=== PATIENT | female | born 1950 | race Caucasian/White ===

== ENCOUNTER → 2019-11-04 | Outpatient (CLI) | payer MEDICARE | LOC: MC.RAD 13:34 | DX: Z12.31 Encounter for screening mammogram for malignant neoplasm of breast (principal) ==

== ENCOUNTER → 2020-11-20 | Outpatient (CLI) | payer MEDICARE | LOC: MC.RAD 13:30 | DX: Z12.31 Encounter for screening mammogram for malignant neoplasm of breast (principal) ==

== ENCOUNTER 2021-09-21 14:50 | Outpatient (CLI) | payer MEDICARE ==
[~2021-09-21] VITALS: Ht 177.8 cm; Wt 60.8 kg
[2021-09-21 15:07] VITALS: BP 163/79; PULSE 49; TEMP 98.6
[2021-09-21] MEDS ORDERED: MASON NATURAL2000 IU PO (15:09)
[2021-09-21] MEDS ORDERED: MULTI VITAMINS1 TAB PO (15:09)
--- NOTE | 2021-09-21 16:15 | NUR ---
INT DC'd, pt assisted out to elevator. She tolerated infusion without issue.
== END 2021-09-21 16:31 | disposition home or self-care (01) ==
LOC: EUO 14:50
DX: M81.0 Age-related osteoporosis without current pathological fracture (principal)
CPT/HCPCS: J3489

== ENCOUNTER 2021-11-18 13:57 | Emergency (ER) | payer MEDICARE ==
[~2021-11-18] VITALS: Ht 177.8 cm; Wt 60.9 kg
[~2021-11-18 13:57] MED LIST: MASON NATURAL2000 IU PO; MULTI VITAMINS1 TAB PO
[2021-11-18 13:59] VITALS: TEMP 98.3
[2021-11-18] MEDS ORDERED: WALKER MC (15:18)
[2021-11-18] MEDS ORDERED: NORCO 325 MG-51 TAB PO (15:22)
[2021-11-18 15:24] VITALS: BP 130/76; PULSE 71
== END 2021-11-18 15:56 | disposition home or self-care (01) ==
LOC: COL.ER 13:57
DX: S82.032A Displaced transverse fracture of left patella, initial encounter for closed fracture (principal); W01.198A Fall on same level from slipping, tripping and stumbling with subsequent striking against other object, initial encounter; Y93.21 Activity, ice skating
CPT/HCPCS: 31289; L1830; L1846

== ENCOUNTER → 2022-07-21 | Outpatient (CLI) | payer MEDICARE ==
[~2022-07-21] MED LIST changes: +NORCO 325 MG-51 TAB PO; +WALKER MC
== END ==
LOC: MC.RAD 11:22
DX: Z12.31 Encounter for screening mammogram for malignant neoplasm of breast (principal)

== ENCOUNTER 2023-09-25 14:44 | Outpatient (CLI) | payer MEDICARE, OTHER ==
[~2023-09-25] VITALS: Ht 177.8 cm; Wt 62.3 kg
[2023-09-25 15:10] VITALS: BP 149/84; PULSE 60; TEMP 97.9
--- NOTE | 2023-09-25 15:49 | NUR ---
PT TOLERATED RECLAST INFUSION WELL AND VS REMAINED WITHIN NORMAL LIMITS. PT AMBULATED TO [facility]DEP[facility]ENT[facility] AND WAS FREE FROM ACUTE CONCERNS AND COMPLAINTS AT TIME OF DISCHARGE. IV DISCONTINUED.
== END 2023-09-25 15:45 ==
LOC: EUO 14:44
DX: M81.0 Age-related osteoporosis without current pathological fracture (principal)
CPT/HCPCS: J3489